=== PATIENT | male | born 1985 | race African-American/Black ===

== ENCOUNTER 2017-10-28 04:43 | Emergency (ER) | payer OTHER ==
[~2017-10-28] VITALS: Ht 177.8 cm; Wt 81.6 kg
[2017-10-28 05:03] VITALS: BP 134/98
[2017-10-28] MEDS ORDERED: KETOROLAC TROMETH 60MG/2ML VIAL IM ONE (07:15)
== END 2017-10-28 07:29 | disposition home or self-care (01) ==
LOC: ER 04:43 → EDBD 04:43 → ER 07:29
DX: S29.011A Strain of muscle and tendon of front wall of thorax, initial encounter (principal); S60.211A Contusion of right wrist, initial encounter; S60.212A Contusion of left wrist, initial encounter; S60.812A Abrasion of left wrist, initial encounter; V43.52XA Car driver injured in collision with other type car in traffic accident, initial encounter; Y93.89 Activity, other specified; Y99.8 Other external cause status; Y92.410 Unspecified street and highway as the place of occurrence of the external cause
CPT/HCPCS: 70450; 71045; 73110; 96372; 99284; J1885

== ENCOUNTER 2023-04-03 16:45 | Inpatient (IN) | payer MEDICAID, OTHER ==
[~2023-04-03] VITALS: Ht 175.3 cm; Wt 99.0 kg
[2023-04-03 17:29] LABS: Alanine Aminotransferase 15 U/L (7-40); Albumin 4.1 g/dL (3.2-4.8); Alkaline Phosphatase 85 U/L (46-116); Anion Gap 8 (5-15); Aspartate Aminotransferase 16 U/L (13-40); BUN/Creatinine Ratio 9.5 (10.0-20.0); Bilirubin, Total 0.4 mg/dL (0.2-1.0); Blood Urea Nitrogen 13 mg/dL (9-23); Calcium 8.7 mg/dL (8.7-10.4); Carbon Dioxide 21 mmol/L (20-30); Chloride 102 mmol/L (98-107); Glucose 97 mg/dL (74-106); Potassium 3.9 mmol/L (3.5-5.1); Sodium 131 mmol/L (136-145)
[2023-04-03 17:30] LABS: Total Protein 8.2 g/dL (5.7-8.2)
[2023-04-03 18:55] LABS: Basophils # (auto) 0 10 ^3/uL (0-0.2); Basophils % (auto) 0.3 % (0.0-2.0); Eosinophils # (auto) 0 10 ^3/uL (0-0.8); Eosinophils % (auto) 0.1 % (0.0-7.0); Hematocrit 24.9 % (41.0-53.0); Hemoglobin 7.1 g/dL (13.5-17.5); Lymphocytes # (auto) 2.5 10 ^3/uL (0.4-5.4); Lymphocytes % (auto) 17.9 % (10.0-50.0); Mean Corpuscular Hemoglobin 15.9 pg (28.0-32.0); Mean Corpuscular Hgb Conc. 28.4 g/dL (32.0-36.0); Mean Corpuscular Volume 56.1 fL (80.0-100.0); Monocytes # (auto) 1.1 10 ^3/uL (0-1.3); Monocytes % (auto) 7.8 % (0.0-12.0); Neutrophils # (auto) 10.4 10 ^3/uL (1.6-8.6); Neutrophils % (auto) 73.9 % (37.0-80.0); Nucleated Red Blood Cells % 0.3 %; Red Blood Cells 4.44 10^6/uL (4.5-5.90)
[2023-04-03 18:56] LABS: Red Cell Distribution Width 20.7 % (11.8-14.3)
[2023-04-03] MEDS ORDERED: SODIUM CHLORIDE 0.9% 1,000 ML IV ONE (21:00)
[2023-04-03] MEDS ORDERED: VANCOMYCIN 1GM/200ML 200 ML IV ONE (22:30)
[2023-04-03] MEDS ORDERED: ONDANSETRON HCL 4 MG/2 ML VIAL IV PRN (23:45)
[2023-04-03] MEDS ORDERED: SODIUM CHLORIDE 0.9% 500 ML IV ONE (23:45)
[2023-04-03] MEDS ORDERED: TEMAZEPAM 15 MG CAP PO PRN (23:45)
[2023-04-04] MEDS: ACETAMINOPHEN 325 MG TAB PO PRN ×3 (03:02→22:51)
[2023-04-04 04:36] LABS: Basophils # (auto) 0 10 ^3/uL (0-0.2); Eosinophils # (auto) 0.1 10 ^3/uL (0-0.8); Nucleated Red Blood Cells % 0.1 %
[2023-04-04 04:37] LABS: Basophils % (auto) 0.3 % (0.0-2.0); Eosinophils % (auto) 0.8 % (0.0-7.0); Hemoglobin 7.2 g/dL (13.5-17.5); Lymphocytes % (auto) 23.7 % (10.0-50.0); Mean Corpuscular Hemoglobin 16.2 pg (28.0-32.0); Mean Corpuscular Hgb Conc. 28.7 g/dL (32.0-36.0); Mean Corpuscular Volume 56.6 fL (80.0-100.0); Monocytes # (auto) 1.3 10 ^3/uL (0-1.3); Monocytes % (auto) 10.2 % (0.0-12.0); Neutrophils # (auto) 8.2 10 ^3/uL (1.6-8.6); Red Blood Cells 4.43 10^6/uL (4.5-5.90); Red Cell Distribution Width 20.3 % (11.8-14.3); White Blood Cell 12.5 10^3/uL (4.4-10.8)
[2023-04-04 04:47] LABS: Chloride 104 mmol/L (98-107); Potassium 3.8 mmol/L (3.5-5.1); Sodium 135 mmol/L (136-145)
[2023-04-04 04:48] LABS: Anion Gap 9 (5-15); Calcium 8.5 mg/dL (8.5-10.1); Carbon Dioxide 22 mmol/L (20-30)
[2023-04-04 04:53] LABS: BUN/Creatinine Ratio 7.4 (10.0-20.0); Blood Urea Nitrogen 9 mg/dL (9-23); Glucose 108 mg/dL (74-106)
[2023-04-04] MEDS: cefTRIAXone 1GM/50ML D5W 50 ML IV SCH (09:36)
[2023-04-04 09:41] VITALS: PULSE 91; RESP 18; O2SAT 99
[2023-04-04 10:44] LABS: % Iron Saturation 4.4 % (20-55)
[2023-04-04 10:53] LABS: Folate (Folic Acid) 13.43 ng/mL (>5.38)
[2023-04-04 22:38] VITALS: BP 116/68; PULSE 96; PULSE 98; RESP 18; TEMP 98.2; TEMP 98.3; O2SAT 98
[2023-04-05 05:00] VITALS: BP 121/78; PULSE 94; RESP 18; TEMP 97.7; O2SAT 100
[2023-04-05 08:50] VITALS: BP_SYST 117; BP_SYST 130; BP_DIAS 71; BP_DIAS 77; PULSE 102; PULSE 83; RESP 16; RESP 22; TEMP 97.9; TEMP 98.9; O2SAT 92; O2SAT 98
[2023-04-05] MEDS: cefTRIAXone 1GM/50ML D5W 50 ML IV SCH (09:55)
[2023-04-05] MEDS ORDERED: BICT1TAB PO ×2 (12:09→12:10)
[2023-04-05 12:55] VITALS: BP_SYST 116; BP_SYST 121; BP_DIAS 68; BP_DIAS 69; PULSE 86; PULSE 88; RESP 16; RESP 20; TEMP 98.2; TEMP 98.7; O2SAT 100; O2SAT 95
[2023-04-05 16:50] VITALS: BP 105/72; PULSE 99; RESP 18; O2SAT 97
[2023-04-05 22:00] VITALS: BP 120/72; PULSE 89; RESP 18; TEMP 98; O2SAT 97
[2023-04-06 05:00] VITALS: BP 145/71; PULSE 83; RESP 18; TEMP 98; O2SAT 100
[2023-04-06] MEDS: cefTRIAXone 1GM/50ML D5W 50 ML IV SCH (08:12)
[2023-04-06 09:00] VITALS: BP_SYST 112; BP_SYST 124; BP_DIAS 71; PULSE 86; PULSE 96; RESP 17; RESP 18; TEMP 97.5; TEMP 98; O2SAT 100
[2023-04-06 09:40] LABS: Hepatitis B Surface Antigen Negative (Negative)
[2023-04-06 10:02] LABS: Hepatitis C Antibody Negative (Negative)
[2023-04-06 11:52] LABS: Hemoglobin 7.8 g/dL (13.5-17.5)
[2023-04-06] MEDS ORDERED: SODIUM FERR GLUC 62.5MG/5ML 125 MG in SODIUM CHL 0.9% 100 ML IV SCH (12:00)
[2023-04-06 12:06] LABS: Hematocrit 27.8 % (41.0-53.0); Mean Corpuscular Hemoglobin 15.8 pg (28.0-32.0); Mean Corpuscular Hgb Conc. 28.2 g/dL (32.0-36.0); Mean Corpuscular Volume 56.2 fL (80.0-100.0); Red Blood Cells 4.95 10^6/uL (4.5-5.90); White Blood Cell 6.8 10^3/uL (4.4-10.8)
[2023-04-06 12:07] LABS: Red Cell Distribution Width 21.1 % (11.8-14.3)
[2023-04-06 12:11] LABS: Band Neutrophils % (manual) 0; Basophils % (manual) 0 (0.0-2.0); Blast Cells 0; Metamyelocytes % 0; Myelocytes % 0; Promyelocytes % 0; Reactive Lymphocytes 0
[2023-04-06 12:12] LABS: Chloride 105 mmol/L (98-107); Potassium 4.5 mmol/L (3.5-5.1); Sodium 138 mmol/L (136-145)
[2023-04-06 12:13] LABS: Anion Gap 5 (5-15); Calcium 9.3 mg/dL (8.5-10.1); Carbon Dioxide 28 mmol/L (20-30)
[2023-04-06 12:18] LABS: BUN/Creatinine Ratio 9.4 (10.0-20.0); Blood Urea Nitrogen 12 mg/dL (9-23); Glucose 65 mg/dL (74-106)
[2023-04-06] MEDS: IRON SUCROSE COMPLEX 100 ML IV SCH (14:00)
[2023-04-06 14:14] LABS: Eosinophils % (manual) 3 (0-7); Lymphocytes % (manual) 43 (10.0-50.0); Monocytes % (manual) 15 (0-12); Platelet Estimate Increased
[2023-04-06 17:00] VITALS: BP 119/70; PULSE 94; RESP 18; TEMP 97.9; O2SAT 95
[2023-04-06 22:00] VITALS: BP 107/72; PULSE 74; RESP 18; TEMP 98.1; O2SAT 94
[2023-04-07 05:00] VITALS: BP 91/57; PULSE 83; RESP 18; TEMP 98; O2SAT 98
[2023-04-07 08:25] VITALS: PULSE 88; RESP 17; O2SAT 98
[2023-04-07] MEDS: cefTRIAXone 1GM/50ML D5W 50 ML IV SCH (08:44)
[2023-04-07 09:00] VITALS: BP 121/77; PULSE 88; RESP 17; TEMP 98.4; O2SAT 98
[2023-04-07 13:00] VITALS: BP 117/69; PULSE 89; RESP 16; TEMP 98.4; O2SAT 100
[2023-04-07] MEDS: IRON SUCROSE COMPLEX 100 ML IV SCH (13:46)
[2023-04-07 17:00] VITALS: BP 108/67; PULSE 105; RESP 18; TEMP 98.1; O2SAT 98
[2023-04-07 19:40] VITALS: BP 120/73; PULSE 103; RESP 19; TEMP 98.1; O2SAT 99
[2023-04-08 04:00] VITALS: BP 126/71; PULSE 96; RESP 16; TEMP 98.5; O2SAT 96
[2023-04-08 06:56] LABS: Chloride 105 mmol/L (98-107); Potassium 4.3 mmol/L (3.5-5.1); Sodium 136 mmol/L (136-145)
[2023-04-08 06:57] LABS: Anion Gap 9 (5-15); Carbon Dioxide 22 mmol/L (20-30)
[2023-04-08 07:02] LABS: BUN/Creatinine Ratio 8.9 (10.0-20.0); Blood Urea Nitrogen 11 mg/dL (9-23); Glucose 97 mg/dL (74-106)
[2023-04-08 07:50] LABS: Basophils # (auto) 0.1 10 ^3/uL (0-0.2); Basophils % (auto) 1.1 % (0.0-2.0); Eosinophils # (auto) 0.3 10 ^3/uL (0-0.8); Hemoglobin 8.2 g/dL (13.5-17.5); Lymphocytes # (auto) 3.2 10 ^3/uL (0.4-5.4); Mean Corpuscular Hemoglobin 16.1 pg (28.0-32.0); Monocytes # (auto) 0.8 10 ^3/uL (0-1.3); Monocytes % (auto) 6.6 % (0.0-12.0); Red Blood Cells 5.11 10^6/uL (4.5-5.90)
[2023-04-08 07:52] LABS: Eosinophils % (auto) 2.4 % (0.0-7.0); Hematocrit 29.3 % (41.0-53.0); Lymphocytes % (auto) 25.6 % (10.0-50.0); Mean Corpuscular Volume 57.4 fL (80.0-100.0); Neutrophils % (auto) 64.3 % (37.0-80.0); Nucleated Red Blood Cells % 1.3 %; Red Cell Distribution Width 20.6 % (11.8-14.3); White Blood Cell 12.5 10^3/uL (4.4-10.8)
[2023-04-08 08:15] VITALS: PULSE 100; RESP 16
[2023-04-08] MEDS: cefTRIAXone 1GM/50ML D5W 50 ML IV SCH (09:00)
[2023-04-08 09:14] VITALS: BP 133/83; PULSE 97; TEMP 98.7; O2SAT 99
[2023-04-08] MEDS ORDERED: Bictegravir-Emtricitabine-Teno (Biktarvy 50-200-25 mg) TABLETS PO SCH (10:00)
[2023-04-08] MEDS: IRON SUCROSE COMPLEX 100 ML IV SCH (12:00)
[2023-04-08 13:10] VITALS: BP 127/87; PULSE 96; TEMP 98.4; O2SAT 100
[2023-04-08 16:27] VITALS: BP 127/87; PULSE 96; RESP 18; TEMP 98.4; O2SAT 100
== END 2023-04-08 18:22 | disposition home or self-care (01) | DRG 720 ==
LOC: ER 16:45 → OVERFLOW 23:37 → CENTRAL 04-04 22:37
PROVIDERS: ADMIT Nurse Practitioner; ATTEND Internal Medicine
DX: A41.9 Sepsis, unspecified organism (principal); N17.9 Acute kidney failure, unspecified; D50.9 Iron deficiency anemia, unspecified; K04.7 Periapical abscess without sinus
CPT/HCPCS: 36415; 71045; 80048; 80053; 82607; 82728; 82746; 83540; 83550; 83605; 83615; 84484; 85007; 85025; 85027; 85045; 86803; 86850; 86900; 86901; 87040; 87340; 93005; G0378; J1756

== ENCOUNTER 2024-01-07 12:32 | Emergency (ER) | payer MEDICAID ==
[~2024-01-07] VITALS: Ht 175.3 cm; Wt 88.5 kg
[~2024-01-07 12:32] MED LIST: APIX2.5T PO; BICT1TAB PO
[2024-01-07 12:40] VITALS: TEMP 98.5
[2024-01-07 12:45] VITALS: BP 146/97
[2024-01-07 14:27] VITALS: PULSE 99; RESP 18; O2SAT 100
[2024-01-07] MEDS ORDERED: IBUP-1454 PO (14:30)
[2024-01-07] MEDS ORDERED: BENZ100C97 PO (14:30)
[2024-01-07] MEDS ORDERED: PSEU120T18 PO (14:30)
[2024-01-07] MEDS ORDERED: AZIT-43 PO (14:30)
[2024-01-07] MEDS ORDERED: PROM1SOL4 PO (14:30)
== END 2024-01-07 14:36 | disposition home or self-care (01) ==
LOC: ER 12:38
DX: B34.9 Viral infection, unspecified (principal)

== ENCOUNTER 2024-01-31 17:02 | Emergency (ER) | payer MEDICAID ==
[~2024-01-31] VITALS: Ht 175.3 cm; Wt 88.0 kg
[~2024-01-31 17:02] MED LIST changes: +AZIT-43 PO; +BENZ100C97 PO; +IBUP-1454 PO; +PROM1SOL4 PO; +PSEU120T18 PO
[2024-01-31 22:01] LABS: Basophils # (auto) 0 10 ^3/uL (0-0.2); Basophils % (auto) 0.1 % (0.0-2.0); Eosinophils # (auto) 0.1 10 ^3/uL (0-0.8); Eosinophils % (auto) 1.3 % (0.0-7.0); Hemoglobin 12.5 g/dL (13.5-17.5); Lymphocytes # (auto) 1.4 10 ^3/uL (0.4-5.4); Lymphocytes % (auto) 18.9 % (10.0-50.0); Mean Corpuscular Hemoglobin 20.8 pg (28.0-32.0); Mean Corpuscular Hgb Conc. 31.2 g/dL (32.0-36.0); Mean Corpuscular Volume 66.6 fL (80.0-100.0); Monocytes # (auto) 0.6 10 ^3/uL (0-1.3); Monocytes % (auto) 8.5 % (0.0-12.0); Neutrophils # (auto) 5.3 10 ^3/uL (1.6-8.6); Neutrophils % (auto) 71.2 % (37.0-80.0); Platelet Count (auto) 325 10^3/uL (140-450); Red Cell Distribution Width 19.6 % (11.8-14.3); White Blood Cell 7.4 10^3/uL (4.4-10.8)
[2024-01-31 22:27] LABS: Alanine Aminotransferase 12 U/L (7-40); Albumin 4.4 g/dL (3.2-4.8); Alkaline Phosphatase 92 U/L (46-116); Anion Gap 7 (5-15); Aspartate Aminotransferase 13 U/L (13-40); BUN/Creatinine Ratio 9.8 (10.0-20.0); Bilirubin, Total 0.4 mg/dL (0.2-1.0); Blood Urea Nitrogen 13 mg/dL (9-23); Calcium 9.3 mg/dL (8.7-10.4); Carbon Dioxide 27 mmol/L (20-31); Chloride 103 mmol/L (98-107); Glucose 86 mg/dL (74-106); Potassium 3.6 mmol/L (3.5-5.1); Sodium 137 mmol/L (136-145); Total Protein 8.7 g/dL (5.7-8.2)
[2024-01-31] MEDS ORDERED: BACDST PO (22:29)
--- NOTE | 2024-01-31 22:30 | ED.PDOC ---
History of Present Illness(SKN HPI Comments 39-year-old male complaining of wound to left anterior wang. Patient states two weeks ago he was hiking when he tripped and fell hitting his wang on a rock. Says he has been putting a dressing on daily but noticed today the dressing felt tighter, his leg was throbbing. And noticed some discharge coming out of the wound. States the wound has not quite healed yet. Nothing makes it better, movement makes it worse. Has experienced some intermittent fever and chills yesterday and today. Patient was HIV positive. States viral load is undetectable. Chief Complaint: Wound Check Time Seen by MD: 18:03 Primary Care Provider: AUGUSTINE History of Present Illness: Nurses Notes Allergies: Coded Allergies: NO KNOWN ALLERGIES (Unverified , 10/28/17) Home Meds Active Scripts Pseudoephedrine-Guaifenesin (Mucinex D) 1 Tab Tab, 1 TAB PO BID for 10 Days, #20 TAB 0 Refills Prov:OTIS HILL NP 01/07/24 Promethazine-Dm (Promethazine Dm 6.25-15 mg/5Ml) 1 Asiya Asiya, 5 ML PO TID for 10 Days, #150 ML 0 Refills Prov:OTIS HILL NP 01/07/24 Benzonatate (Benzonatate) 100 Mg Cap, 1 CAP PO TID for 10 Days, #30 CAP 0 Refills Prov:OTIS HILL NP 01/07/24 Ibuprofen (Ibuprofen) 600 Mg Tab, 1 TAB PO TID for 10 Days, #30 TAB 0 Refills Prov:OTIS HILL NP 01/07/24 Azithromycin (Azithromycin) 250 Mg Tab, 250 MG PO DAILY MDD 500 for 5 Days, #6 TAB 0 Refills 2 TABLETS ORALLY ON DAY ONE, THEN 1 TABLET ORALLY DAILY FOR 4 DAYS Prov:OTIS HILL NP 01/07/24 Apixaban Base (ELIQUIS) 2.5 Mg Tab, 2.5 MG PO BID for 30 Days, #60 TAB Prov:MELIZA JOYNER 10/30/23 Reported Medications Bzsmjvkmqsr-Bggmylomwtyzx-Phqj (Biktarvy 50-200-25 mg) 1 Tab Tab, 1 TAB PO DAILY, TAB 04/05/23 Information Source: Patient Mode of Arrival: Ambulatory Past Medical History PAST MEDICAL HISTORY: Denies Surgical History: Denies all surgeries Family History Family History: Unknown Social History Smoker: Non-Smoker Lives In: Home Constitutional: denies: chills, diaphoresis, fatigue, fever, malaise, sweats, weakness, others EENTM: denies: blurred vision, double vision, ear bleeding, ear discharge, ear drainage, ear pain, ear ringing, eye pain, eye redness, hearing loss, mouth pain, mouth swelling, nasal discharge, nose bleeding, nose congestion, nose pain, photophobia, tearing, throat pain, throat swelling, voice changes, others Respiratory: denies: cough, hemoptysis, orthopnea, SOB at rest, shortness of breath, SOB with excertion, stridor, wheezing, others Cardiovascular: denies: chest pain, dizzy spells, diaphoresis, Dyspnea on exertion, edema, irregular heart beat, left arm pain, lightheadedness, palpitations, PND, syncope, others Gastrointestinal: denies: abdomen distended, abdominal pain, blood streaked bowels, constipated, diarrhea, dysphagia, difficulty swallowing, hematemesis, melena, nausea, poor appetite, poor fluid intake, rectal bleeding, rectal pain, vomiting, others Genitourinary: denies: burning, dysuria, flank pain, frequency, hematuria, incontinence, penile discharge, penile sore, pain, testicle pain, testicle swelling, urgency, others Neurological: denies: dizziness, fainting, headache, left sided numbness, left sided weakness, numbness, paresthesia, pre-existing deficit, right sided numbness, right sided weakness, seizure, speech problems, tingling, tremors, weakness, others Musculoskeletal: denies: back pain, gout, joint pain, joint swelling, muscle pain, muscle stiffness, neck pain, others Integumetry: reports: wounds; denies: bruises, change in color, change in hair/nails, dryness, laceration, lesions, lumps, rash, others Allergic/Immunocompromised: denies: Difficulty Healing, Frequent Infections, Hives, Itching, others Physical Exam General Appearance: No Apparent Distress, Normal HEENT: Normal ENT Inspection, Pharynx Normal, TMs Normal Neck: Full Range of Motion, Non-Tender, Normal, Normal Inspection Respiratory: Chest Non-Tender, Lungs Clear, No Accessory Muscle Use, No Respiratory Distress, Normal Breath Sounds Cardiovascular: No Edema, No JVD, No Murmur, No Gallop, Normal Peripheral Pulses, Regular Rate/Rhythm Breast Exam: Deferred Gastrointestinal: No Organomegaly, Non Tender, No Pulsatile Mass, Normal Bowel Sounds, Soft Genitalia: Deferred Pelvic: Deferred Rectal: Deferred Extremities: No calf tenderness, Normal capillary refill, Normal inspection, Normal range of motion, Non-tender, No pedal edema Musculoskeletal : Apperance: Normal Neurologic: Alert, program admin II-XII nml as Tested, No Motor Deficits, Normal Affect, Normal Mood, No Sensory Deficits Cerebellar Function: Normal Reflexes: Normal Skin: Dry, Normal Color, Warm, Wounds (1 cm round wound noted on left lower leg anterior side wang. There is scant discharge/weeping from the wound.) Lymphatic: No Adenopathy Was a procedure done? Was a procedure done?: No Differential Diagnosis (INTG) Differential Diagnosis: Abrasion, Cellulitis X-Ray, Labs, Meds, VS Vital Signs Date Time Temp Pulse Resp B/P (MAP) Pulse Ox O2 Delivery O2 Flow Rate FiO2 01/31/24 18:00 98.1 119 18 131/78 (95) 96 Lab Test 01/31/24 21:35 Range/Units White Blood Count 7.4 4.4-10.8 10^3/uL Red Blood Count 6.00 H 4.5-5.90 10^6/uL Hemoglobin 12.5 L 13.5-17.5 g/dL Hematocrit 40.0 L 41.0-53.0 % Mean Corpuscular Volume 66.6 L 80.0-100.0 fL Mean Corpuscular Hemoglobin 20.8 L 28.0-32.0 pg Mean Corpuscular Hemoglobin Concent 31.2 L 32.0-36.0 g/dL Red Cell Distribution Width 19.6 H 11.8-14.3 % Platelet Count 325 140-450 10^3/uL Mean Platelet Volume 6.4 L 6.9-10.8 fL Neutrophils (%) (Auto) 71.2 37.0-80.0 % Lymphocytes (%) (Auto) 18.9 10.0-50.0 % Monocytes (%) (Auto) 8.5 0.0-12.0 % Eosinophils (%) (Auto) 1.3 0.0-7.0 % Basophils (%) (Auto) 0.1 0.0-2.0 % Neutrophils # (Auto) 5.3 1.6-8.6 10 ^3/uL Lymphocytes # (Auto) 1.4 0.4-5.4 10 ^3/uL Monocytes # (Auto) 0.6 0-1.3 10 ^3/uL Eosinophils # (Auto) 0.1 0-0.8 10 ^3/uL Basophils # (Auto) 0 0-0.2 10 ^3/uL Nucleated Red Blood Cells 0.0 % Sodium Level Pending Potassium Level Pending Chloride Level Pending Carbon Dioxide Level Pending Anion Gap Pending Blood Urea Nitrogen Pending Creatinine Pending Glomerular Filtration Rate Calc Pending BUN/Creatinine Ratio Pending Serum Glucose Pending Calcium Level Pending Total Bilirubin Pending Aspartate Amino Transferase (AST) Pending Alanine Aminotransferase (ALT) Pending Alkaline Phosphatase Pending Total Protein Pending Albumin Pending X-Ray, Labs, Meds, VS Comment Imaging: X-rays and CT scans were reviewed and interpreted by this provider, imaging shows no fractures and no pathological disease. Pending radiology review. Laboratory: Labs reviewed and interpreted by this provider. No significant abnormalities noted. Patient has prior medical visits reviewed. Med reconciliation performed Vital signs reviewed Time of 1ST Reevaluation: 22:30 Reevaluation 1ST: Improved Patient Education/Counseling: Diagnosis, Treatment, Need For Follow Up (Patient advised to follow-up in the emergency room in the next 24 to 48 hours if symptoms do not improve. Advised follow-up with PCP in the next 3 to 5 days. Patient verbalized understanding. ) Family Education/Counseling: Diagnosis Departure 1 Departure Time of Disposition: 22:29 Impression: Primary Impression: Cellulitis Qualified Codes: L03.116 - Cellulitis of left lower limb Disposition: HOME / SELF CARE / HOMELESS Condition: Fair e-Prescriptions Sulfamethoxazole W/Trimethopri (Bactrim Ds Tablet) 1 Tab Tb 1 TAB PO BID for 10 Days, #20 TAB Prov: MELIZA JOYNER 01/31/24 Discharged With: Self Critical Care Note Critical Care Time?: No Stability Stability form required: No Heart Score Heart Score: Heart Score Response (Comments) Value History N/A 0 EKG N/A 0 Age N/A 0 Risk Factors N/A 0 Troponin N/A 0 Total 0 MELIZA JOYNER [employer] Jan 31, 2024 22:30
[2024-01-31 22:40] VITALS: BP 128/92; PULSE 92; RESP 16; TEMP 98.7; O2SAT 98
== END 2024-01-31 22:53 | disposition home or self-care (01) ==
LOC: ER 17:02
DX: L03.116 Cellulitis of left lower limb (principal); Z79.01 Long term (current) use of anticoagulants; Z79.1 Long term (current) use of non-steroidal anti-inflammatories (NSAID); Z79.624 Long term (current) use of inhibitors of nucleotide synthesis; Z79.899 Other long term (current) drug therapy
CPT/HCPCS: 36415; 80053; 85025

== ENCOUNTER 2024-07-31 07:04 | Emergency (ER) | payer MEDICAID ==
[~2024-07-31] VITALS: Ht 175.3 cm; Wt 97.7 kg
[~2024-07-31 07:04] MED LIST changes: +BACDST PO
--- NOTE | 2024-07-31 07:50 | ED.PDOC ---
GI ASSESSMENT HPI Comments 39 year old male presents to the ED with chief complaint of abdominal pain. Patient reports that he has been experiencing diffuse abdominal pain with associated diarrhea, headache, and nausea for the past week. Patient relays that he feels dehydrated. Patient states he is currently on Biktarvy and Eliquis (for DVT). Patient denies any hematemesis, vomiting, melena, fever, chills, chest pain, or SOB. Chief Complaint: Diarrhea Time Seen by MD: 07:45 Primary Care Provider: AUGUSTINE Reviewed Notes: Nurses Notes, Medications, Allergies Allergies: Coded Allergies: NO KNOWN ALLERGIES (Unverified , 10/28/17) Home Meds Active Scripts Sulfamethoxazole W/Trimethopri (Bactrim Ds Tablet) 1 Tab Tb, 1 TAB PO BID for 10 Days, #20 TAB Prov:MELIZA JOYNER 01/31/24 Pseudoephedrine-Guaifenesin (Mucinex D) 1 Tab Tab, 1 TAB PO BID for 10 Days, #20 TAB 0 Refills Prov:OTIS HILL NP 01/07/24 Promethazine-Dm (Promethazine Dm 6.25-15 mg/5Ml) 1 Asiya Asiya, 5 ML PO TID for 10 Days, #150 ML 0 Refills Prov:OTIS HILL NP 01/07/24 Benzonatate (Benzonatate) 100 Mg Cap, 1 CAP PO TID for 10 Days, #30 CAP 0 Refills Prov:OTIS HILL NP 01/07/24 Ibuprofen (Ibuprofen) 600 Mg Tab, 1 TAB PO TID for 10 Days, #30 TAB 0 Refills Prov:OTIS HILL NP 01/07/24 Azithromycin (Azithromycin) 250 Mg Tab, 250 MG PO DAILY MDD 500 for 5 Days, #6 TAB 0 Refills 2 TABLETS ORALLY ON DAY ONE, THEN 1 TABLET ORALLY DAILY FOR 4 DAYS Prov:OTIS HILL NP 01/07/24 Apixaban Base (ELIQUIS) 2.5 Mg Tab, 2.5 MG PO BID for 30 Days, #60 TAB Prov:MELIZA JOYNER 10/30/23 Reported Medications Jewsjbspozc-Rqzejjqqjiclq-Hide (Biktarvy 50-200-25 mg) 1 Tab Tab, 1 TAB PO DAILY, TAB 04/05/23 Information Source: Patient Mode of Arrival: Ambulatory Timing: Days Duration: Since onset Prehospital treatment: None Quality: Aching Vomitus: None Stool: Watery Severity: Moderate Recent: None Recent Hx of: None Pain Location: Diffuse Modifying Factors: Nothing Associated sign and symptoms: Nausea, Diarrhea, Abdominal Pain Past Medical History PAST MEDICAL HISTORY: Denies Surgical History: Denies all surgeries Family History Family History: Unknown Social History Smoker: Non-Smoker Alcohol: Denies ETOH Use Drugs: Denies Drug Use Lives In: Home Constitutional: denies: chills, diaphoresis, fatigue, fever, malaise, sweats, weakness, others EENTM: denies: blurred vision, double vision, ear bleeding, ear discharge, ear drainage, ear pain, ear ringing, eye pain, eye redness, hearing loss, mouth pain, mouth swelling, nasal discharge, nose bleeding, nose congestion, nose pain, photophobia, tearing, throat pain, throat swelling, voice changes, others Respiratory: denies: cough, hemoptysis, orthopnea, SOB at rest, shortness of breath, SOB with excertion, stridor, wheezing, others Cardiovascular: denies: chest pain, dizzy spells, diaphoresis, Dyspnea on exertion, edema, irregular heart beat, left arm pain, lightheadedness, palpitations, PND, syncope, others Gastrointestinal: reports: abdominal pain, diarrhea, nausea; denies: abdomen distended, blood streaked bowels, constipated, dysphagia, difficulty swallowing, hematemesis, melena, poor appetite, poor fluid intake, rectal bleeding, rectal pain, vomiting, others Genitourinary: denies: burning, dysuria, flank pain, frequency, hematuria, incontinence, penile discharge, penile sore, pain, testicle pain, testicle swelling, urgency, others Neurological: denies: dizziness, fainting, headache, left sided numbness, left sided weakness, numbness, paresthesia, pre-existing deficit, right sided numbness, right sided weakness, seizure, speech problems, tingling, tremors, weakness, others Musculoskeletal: denies: back pain, gout, joint pain, joint swelling, muscle pain, muscle stiffness, neck pain, others Integumetry: denies: bruises, change in color, change in hair/nails, dryness, laceration, lesions, lumps, rash, wounds, others Allergic/Immunocompromised: denies: Difficulty Healing, Frequent Infections, Hives, Itching, others Hematologic/Lymphatic: denies: anemia, blood clots, easy bleeding, easy bruising, swollen glands, others Endocrine: denies: excessive hunger, excessive sweating, excessive thirst, excessive urination, flushing, intolerance to cold, intolerance to heat, unexplained weight gain, unexplained weight loss, others Psychiatric: denies: anxiety, bipolar disorder, depression, hopeless, panic disorder, schizophrenia, sleepless, suicidal, others All Other Systems: Reviewed and Negative Physical Exam General Appearance: Moderate Distress, Normal HEENT: Normal ENT Inspection, Pharynx Normal, TMs Normal Neck: Full Range of Motion, Non-Tender, Normal, Normal Inspection Respiratory: Chest Non-Tender, Lungs Clear, No Accessory Muscle Use, No Respiratory Distress, Normal Breath Sounds Cardiovascular: No Edema, No JVD, No Murmur, No Gallop, Normal Peripheral Pulses, Regular Rate/Rhythm Breast Exam: Deferred Gastrointestinal: No Organomegaly, Non Tender, No Pulsatile Mass, Normal Bowel Sounds, Soft Genitalia: Deferred Pelvic: Deferred Rectal: Deferred Extremities: No calf tenderness, Normal capillary refill, Normal inspection, Normal range of motion, Non-tender, No pedal edema Musculoskeletal : Apperance: Normal Neurologic: Alert, box sealing inspector II-XII nml as Tested, No Motor Deficits, Normal Affect, Normal Mood, No Sensory Deficits Cerebellar Function: Normal Reflexes: Normal Skin: Dry, Normal Color, Warm Peripheral Pulses: 3+ Radial (R), 3+ Radial (L) Lymphatic: No Adenopathy Was a procedure done? Was a procedure done?: No GI differential Dx Differential Diagnosis: Constipation, Diverticular disease, Esophagitis, Gastritis/PUD, Gastroenteritis, Dehydration, Electrolyte Imbalance, Food Poisoning, Bacterial, Viral X-Ray, Labs, Meds, VS Vital Signs Date Time Temp Pulse Resp B/P (MAP) Pulse Ox O2 Delivery O2 Flow Rate FiO2 07/31/24 09:40 Room Air* 0 21 07/31/24 08:57 97.8 102 16 117/75 (89) 99 97.8 07/31/24 07:31 97.7 101 16 119/81 (94) 100 97.7 Lab Test 07/31/24 07:57 Range/Units White Blood Count 8.6 4.4-10.8 10^3/uL Red Blood Count 5.09 4.5-5.90 10^6/uL Hemoglobin 9.5 L 13.5-17.5 g/dL Hematocrit 31.2 L 41.0-53.0 % Mean Corpuscular Volume 61.3 L 80.0-100.0 fL Mean Corpuscular Hemoglobin 18.6 L 28.0-32.0 pg Mean Corpuscular Hemoglobin Concent 30.3 L 32.0-36.0 g/dL Red Cell Distribution Width 20.0 H 11.8-14.3 % Platelet Count 510 H 140-450 10^3/uL Mean Platelet Volume 6.3 L 6.9-10.8 fL Neutrophils (%) (Auto) 57.4 37.0-80.0 % Lymphocytes (%) (Auto) 24.8 10.0-50.0 % Monocytes (%) (Auto) 14.9 H 0.0-12.0 % Eosinophils (%) (Auto) 2.3 0.0-7.0 % Basophils (%) (Auto) 0.6 0.0-2.0 % Neutrophils # (Auto) 5.0 1.6-8.6 10 ^3/uL Lymphocytes # (Auto) 2.1 0.4-5.4 10 ^3/uL Monocytes # (Auto) 1.3 0-1.3 10 ^3/uL Eosinophils # (Auto) 0.2 0-0.8 10 ^3/uL Basophils # (Auto) 0 0-0.2 10 ^3/uL Nucleated Red Blood Cells 0.3 % Platelet Estimate Increased Hypochromasia (manual) Moderate Microcytosis Moderate Sodium Level 140 136-145 mmol/L Potassium Level 3.6 3.5-5.1 mmol/L Chloride Level 104 98-107 mmol/L Carbon Dioxide Level 28 20-31 mmol/L Anion Gap 8 5-15 Blood Urea Nitrogen 9 9-23 mg/dL Creatinine 1.28 0.700-1.30 mg/dL Glomerular Filtration Rate Calc 74 >90 mL/min BUN/Creatinine Ratio 7.0 L 10.0-20.0 Serum Glucose 101 74-106 mg/dL Calcium Level 9.5 8.7-10.4 mg/dL Current Medications Medications (Trade) Dose Ordered Sig/Yuval Route Start Time Stop Time Status Last Admin Sodium Chloride 1,000 ml @ 1,000 mls/hr Q1H ONCE IV 07/31/24 08:00 07/31/24 08:59 DC 07/31/24 10:08 Diphenoxylate HCl/ Atropine (Lomotil Tablet) 5 mg ONCE ONCE PO 07/31/24 08:00 07/31/24 08:01 DC 07/31/24 10:07 Patient alert. Complaining of diarrhea for many months. Vitals stable. Answering questions. Smokes marijuana. Abdomen is soft nontender. WBC within normal limits. Saturation pristine on room air. No leg swelling. He is on Eliquis. No accessory muscle use. No discoloration. No sign of any acute distress. He is comfortable. Ambulating without difficulty. On clinical examination heart rate is within normal limits. Explained to the patient about the labs and was told to continue taking his blood thinner. Was told to follow up with his primary care physician. Was told to come back if there is any problem. Time of 1ST Reevaluation: 08:45 Reevaluation 1ST: Unchanged Patient Education/Counseling: Diagnosis, Treatment Family Education/Counseling: No Family Present Additional Information The following tests were ordered, and results were reviewed by me: UA, CBC, BMP Additional Information was gathered from interviewing the following independent historians: None I reviewed and agreed with the following test results read by other providers: None I discussed treatment and results with medical personnel and: patient Comprehensive systems review obtained and negative except for what is stated in the HPI. Departure 1 Departure Time of Disposition: 08:34 Impression: Primary Impression: Gastroenteritis Additional Impressions: Anemia Qualified Codes: D64.9 - Anemia, unspecified Gastritis Qualified Codes: K29.00 - Acute gastritis without bleeding Disposition: 01 HOME / SELF CARE / HOMELESS Condition: Good e-Prescriptions Pantoprazole Sodium Sesquihydr (Protonix) 40 Mg Tab 40 MG PO DAILY for 7 Days, #7 TAB Prov: MUKESH HERNANDEZ MD 07/31/24 Discharged With: Self Comments Spoke to and examined patient at 0745, discussing treatment plan at this time. Spoke to the patient at 11:32 a.m. explained to the patient that his labs were all within normal limits was given prescription of Protonix for possible gastritis. Critical Care Note Critical Care Time?: No Stability Stability form required: No Heart Score Heart Score: Heart Score Response (Comments) Value History N/A 0 EKG N/A 0 Age N/A 0 Risk Factors N/A 0 Troponin N/A 0 Total 0 I personally scribed for MUKESH HERNANDEZ MD ([email or web address]) on 07/31/24 at 07:50. Electronically submitted by Kiel London ([email or web address]). MUKESH HERNANDEZ MD July 31, 2024 07:50
[2024-07-31 08:14] LABS: Chloride 104 mmol/L (98-107); Potassium 3.6 mmol/L (3.5-5.1); Sodium 140 mmol/L (136-145)
[2024-07-31 08:15] LABS: Anion Gap 8 (5-15); Calcium 9.5 mg/dL (8.7-10.4); Carbon Dioxide 28 mmol/L (20-31)
[2024-07-31 08:19] LABS: Basophils # (auto) 0 10 ^3/uL (0-0.2); Basophils % (auto) 0.6 % (0.0-2.0); Eosinophils # (auto) 0.2 10 ^3/uL (0-0.8); Eosinophils % (auto) 2.3 % (0.0-7.0); Hematocrit 31.2 % (41.0-53.0); Hemoglobin 9.5 g/dL (13.5-17.5); Lymphocytes # (auto) 2.1 10 ^3/uL (0.4-5.4); Lymphocytes % (auto) 24.8 % (10.0-50.0); Mean Corpuscular Hemoglobin 18.6 pg (28.0-32.0); Mean Corpuscular Hgb Conc. 30.3 g/dL (32.0-36.0); Mean Corpuscular Volume 61.3 fL (80.0-100.0); Monocytes # (auto) 1.3 10 ^3/uL (0-1.3); Monocytes % (auto) 14.9 % (0.0-12.0); Neutrophils % (auto) 57.4 % (37.0-80.0); Nucleated Red Blood Cells % 0.3 %; Platelet Count (auto) 510 10^3/uL (140-450); Red Blood Cells 5.09 10^6/uL (4.5-5.90); White Blood Cell 8.6 10^3/uL (4.4-10.8)
[2024-07-31 08:20] LABS: Blood Urea Nitrogen 9 mg/dL (9-23); Glucose 101 mg/dL (74-106)
[2024-07-31 08:28] LABS: Hypochromia Moderate; Platelet Estimate Increased
[2024-07-31 08:57] VITALS: BP 117/75; PULSE 102; RESP 16; TEMP 97.8; O2SAT 99
[2024-07-31] MEDS: DIPHENOXYLATE W/ATROPINE 2.5 MG TAB PO ONE (10:07)
[2024-07-31] MEDS: SODIUM CHLORIDE 0.9% 1,000 ML IV ONE (10:08)
[2024-07-31] MEDS ORDERED: PANT40TA2 PO (11:33)
== END 2024-07-31 11:50 | disposition home or self-care (01) ==
LOC: ER 07:04
DX: K52.9 Noninfective gastroenteritis and colitis, unspecified (principal); D64.9 Anemia, unspecified; K29.70 Gastritis, unspecified, without bleeding; Z79.624 Long term (current) use of inhibitors of nucleotide synthesis
CPT/HCPCS: 36415; 80048; 85025; 96360; 99283; J7030